=== PATIENT | female | born 1950 | race Caucasian/White ===

== ENCOUNTER → 2018-10-04 | Outpatient (CLI) | payer MEDICARE | LOC: MAMMO 09:37 | PROVIDERS: ATTEND Internal Medicine | DX: Z12.31 Encounter for screening mammogram for malignant neoplasm of breast (principal) | CPT/HCPCS: 77067 ==

== ENCOUNTER 2021-03-07 07:50 | Emergency (ER) | payer MEDICARE ==
[~2021-03-07] VITALS: Ht 170.2 cm; Wt 113.4 kg
[2021-03-07] MEDS ORDERED: SODIUM CHLORIDE 0.9% 500ML 500 ML IV ONE (08:15)
[2021-03-07] MEDS ORDERED: CASIRIVIMAB/IMDEVIMAB 10 ML in SODIUM CHLORIDE 0.9% 100 ML IV ONE (08:15)
== END 2021-03-07 10:22 | disposition home or self-care (01) ==
LOC: ER 08:25
DX: U07.1 COVID-19 (principal); J45.909 Unspecified asthma, uncomplicated; J98.4 Other disorders of lung
CPT/HCPCS: 99283; J7050

== ENCOUNTER 2021-03-10 05:56 | Emergency (ER) | payer MEDICARE ==
[~2021-03-10] VITALS: Ht 154.9 cm; Wt 113.4 kg
[2021-03-10] MEDS ORDERED: TESSALON PERLE100 MG PO (06:10)
[2021-03-10] MEDS ORDERED: VENTOLIN HFA18 GM INH (06:10)
[2021-03-10] MEDS ORDERED: ZOFRAN4 MG SL (06:10)
== END 2021-03-10 06:30 | disposition home or self-care (01) ==
LOC: ER 06:07
DX: U07.1 COVID-19 (principal)
CPT/HCPCS: 99283